=== PATIENT | male | born 1990 | race Caucasian/White ===

== ENCOUNTER 2018-05-30 10:35 | Emergency (ER) | payer OTHER ==
[~2018-05-30] VITALS: Ht 167.6 cm; Wt 50.8 kg
--- OUTSIDE RECORDS SUMMARY | 2018-05-30 10:48 | XMS REPORT ---
Author Author JOSE HENSLEY Organization [employer] Address Unknown Phone Unavailable Care Team Providers Care Tax Technician Name Role Phone JOSE HENSLEY CP Unavailable Allergies, Adverse Reactions, Alerts Substance Reaction Event Type N.K.D.A. Info Not Available Non Drug Allergy Problems Problem Type Condition Code Onset Dates Condition Status Assessment Other viral warts B07.8 Active Medications No Known Medications Procedures Procedure Coding System Code Date Office Visit, New Pt., Level 3 CPT-4 51928 Jan 30, 2016 Vital Signs Date/Time: Jan 30, 2016 Cardiac Monitoring Heart Rate 77 bpm Weight 117 lbs Height 68 in BMI 17.79 Index Blood Pressure Diastolic 64 mmHg Blood Pressure Systolic 118 mmHg Results No Known Results Summary Purpose [employer] Submission
--- OUTSIDE RECORDS SUMMARY | 2018-05-30 10:48 | XMS REPORT ---
Author Author JOSE HENSLEY Organization [employer] Address Unknown Phone Unavailable Care Team Providers Care Pumper Gager Apprentice Name Role Phone JOSE HENSLEY CP Unavailable Allergies, Adverse Reactions, Alerts Substance Reaction Event Type N.K.D.A. Info Not Available Non Drug Allergy Problems Problem Type Condition Code Onset Dates Condition Status Assessment MC (molluscum contagiosum) B08.1 Active Medications No Known Medications Procedures Procedure Coding System Code Date Office Visit, Est Pt., Level 3 CPT-4 07164 Feb 13, 2016 Vital Signs Date/Time: Feb 13, 2016 Cardiac Monitoring Heart Rate 68 bpm Weight 117.4 lbs Height 68 in BMI 17.85 Index Blood Pressure Diastolic 62 mmHg Blood Pressure Systolic 104 mmHg Results No Known Results Summary Purpose [employer] Submission
[2018-05-30] MEDS ORDERED: NS IV 1000 ML 1,000 ML IV ONE (11:03)
[2018-05-30 11:10] LABS: BASOPHILS # (AUTO) 0.1 10^3/uL (0.0-0.1); BASOPHILS % (AUTO) 1 % (0-10); EOSINOPHILS # (AUTO) 0.2 10^3/uL (0.0-0.3); EOSINOPHILS % (AUTO) 1 % (0-10); HEMATOCRIT 46 % (40-54); HEMOGLOBIN 16.5 G/DL (13.3-17.7); LYMPHOCYTES # (AUTO) 2.4 X 10^3 (1.0-4.0); LYMPHOCYTES % (AUTO) 18 % (12-44); MEAN CORPUSCULAR HEMOGLOBIN 33 PG (25-34); MEAN CORPUSCULAR HGB CONC 36 G/DL (32-36); MEAN CORPUSCULAR VOLUME 93 FL (80-99); MEAN PLATELET VOLUME 11.1 FL (7.4-10.4); MONOCYTES # (AUTO) 0.8 X 10^3 (0.0-1.0); MONOCYTES % (AUTO) 6 % (0-12); NEUTROPHILS # (AUTO) 9.6 X 10^3 (1.8-7.8); NEUTROPHILS % (AUTO) 74 % (42-75); PLATELET COUNT 170 10^3/uL (130-400); RED BLOOD COUNT 4.98 10^6/uL (4.35-5.85); RED CELL DISTRIBUTION WIDTH 12.4 % (10.0-14.5); WHITE BLOOD COUNT 13.1 10^3/uL (4.3-11.0)
--- NOTE | 2018-05-30 11:12 | Diagnostic Imaging Report ---
INDICATION: Pneumothorax.. TECHNIQUE: Single view chest 10:49 AM. CORRELATION STUDY: None FINDINGS: A moderate right-sided pneumothorax is present, approximately 25%. Mediastinal structures are slightly to the left of midline and component of tension is not excluded. There is some consolidation with likely atelectasis about the right mid and lower lung field. Left lung clear. IMPRESSION: 1. Right-sided pneumothorax of approximately 25%. Component of early tension suspect. Critical findings Findings have been telephoned to the emergency department, 11:02 AM. Dictated by: Dictated on workstation # [id number]
[2018-05-30] MEDS ORDERED: MIDAZOLAM 2 MG/2 ML (VERSED) VIAL ONE (11:20)
[2018-05-30] MEDS ORDERED: LIDOCAINE 1% INJ 20 ML 20 ML VIAL ONE (11:23)
[2018-05-30] MEDS ORDERED: MIDAZOLAM 2 MG/2 ML (VERSED) VIAL IM ONE ×2 (11:30)
[2018-05-30 11:34] LABS: ALANINE AMINOTRANSFERASE 18 U/L (0-55); ALBUMIN 5.1 GM/DL (3.2-4.5); ALKALINE PHOSPHATASE 52 U/L (40-136); BUN/CREATININE RATIO 19; CALCIUM 10.1 MG/DL (8.5-10.1); CARBON DIOXIDE 24 MMOL/L (21-32); CHLORIDE 106 MMOL/L (98-107); GFR ESTIMATED > 60; GLUCOSE 111 MG/DL (70-105); POTASSIUM 3.7 MMOL/L (3.6-5.0); SODIUM 142 MMOL/L (135-145); TOTAL PROTEIN 7.3 GM/DL (6.4-8.2)
--- NOTE | 2018-05-30 11:36 | ED Respiratory ---
General Chief Complaint: Respiratory Problems Stated Complaint: LUNG PAIN;AIR AROUND LUNG Nursing Triage Note: ARRIVED VIA AMB TO ROOM 03. SENT OVER FROM [facility] DUE TO A PNUMO SHOWING ON HIS X-RAY STATES AT 1500 YESTERDAY HE FELT A PAIN RIGHT UNDER HIS CHEST AND IT HURT TO COUGH AND BREATHE. Source: patient Exam Limitations: no limitations (WILLIAM WILSON MD) History of Present Illness Date Seen by Provider: May 30, 2018 Time Seen by Provider: 10:42 Initial Comments Here with report of physical to the breathing and pain on the right side of the chest. Was seen at [facility] today and found to have pneumothorax on the right. Patient states that yesterday afternoon he was walking and when he got home and felt like he needed to take a deep breath. He did that and felt a gravel-type pain to his right chest and felt like it was sticking on the right side. Had difficulty with deep breath for a little while and then settled down. Pain is worse when laying on the right side and better when lying on the left side. He's laid on the left side overnight and that did help. Went to the clinic this morning due to persistence of pain. Sent here for further evaluation. They and I both recommended transfer by ambulance on high flow O2 but he opted for POV transport. He did smoke on the way here. Denies fevers, vomiting or other concerns. Never had anything like this before. Timing/Duration: yesterday, getting worse Severity: moderate Prior Episodes/Possible Cause: no prior episodes Associated Symptoms: cough; No fever/chills, No nasal congestion; shortness of breath; No sore throat, No wheezing (WILLIAM WILSON MD) Allergies and Home Medications Allergies Coded Allergies: latex (Verified Allergy, Severe, rash, 05/30/18) Home Medications Oxycodone HCl/Acetaminophen 1 Each Tablet, 1-2 EACH PO Q6H PRN for PAIN-MODERATE Prescribed by: ONEAL NJ on 05/30/18 1235 Patient Home Medication List Home Medication List Reviewed: Yes (WILLIAM WILSON MD) Review of Systems Review of Systems Constitutional: see HPI; No chills, No fever EENTM: no symptoms reported Respiratory: see HPI Cardiovascular: see HPI, chest pain (right sided sharp and worse with deep breath) Gastrointestinal: No abdominal pain, No nausea, No vomiting Genitourinary: no symptoms reported Musculoskeletal: no symptoms reported (WILLIAM WILSON MD) All Other Systems Reviewed Negative Unless Noted: Yes (WILLIAM WILSON MD) Past Wrvfphi-Wwbqsh-Ljqocv Hx Past Med/Social Hx: Reviewed Nursing Past Med/Soc Hx (WILLIAM WILSON MD) Patient Social History Alcohol Use: Denies Use Recreational Drug Use: No Smoking Status: Current Everyday Smoker Recent Foreign Travel: No Contact w/Someone Who Travel: No Recent Infectious Disease Expo: No Recent Hopitalizations: No (WILLIAM WILSON MD) Seasonal Allergies Seasonal Allergies: No (WILLIAM WILSON MD) Past Medical History Surgeries: No Respiratory: No Cardiac: No Neurological: No Genitourinary: No Gastrointestinal: No Musculoskeletal: No Endocrine: No HEENT: No Cancer: No Psychosocial: No Integumentary: No (WILLIAM WILSON MD) Family Medical History Reviewed Nursing Family Hx (WILLIAM WILSON MD) No Pertinent Family Hx (WILLIAM WILSON MD) Physical Exam Vital Signs - First Documented 05/30/18 10:45 Temp 98.0 Pulse 112 Resp 20 B/P (MAP) 138/111 (120) Pulse Ox 100 O2 Delivery Room Air (ONEAL SALAZAR MD) Capillary Refill : Less Than 3 Seconds (WILLIAM WILSON MD) Height: 5'6.00" Weight: 112lbs. oz. 50.005966iu; BMI Method:Stated General Appearance: WD/WN, no apparent distress HEENT: PERRL/EOMI, pharynx normal Neck: full range of motion, supple Respiratory: decreased breath sounds (right sided); No wheezing Cardiovascular: regular rate, rhythm, no murmur Gastrointestinal: non tender, soft Extremities: non-tender, normal inspection Neurologic/Psychiatric: alert, normal mood/affect Skin: normal color, warm/dry (WILLIAM WILSON MD) Progress/Results/Core Measures Suspected Sepsis Recent Fever Within 48 Hours: No Infection Criteria Present: None New/Unexplained Altered Menta: No Sepsis Screen: No Definite Risk SIRS Temperature:98.0 Pulse: 112 Respiratory Rate: 20 Laboratory Tests 05/30/18 11:03: White Blood Count 13.1H Blood Pressure 138 /111 Mean: 120 Laboratory Tests 05/30/18 11:03: Creatinine 0.90, Platelet Count 170, Total Bilirubin 1.0 (WILLIAM WILSON MD) Results/Orders Lab Results Laboratory Tests Test 05/30/18 11:03 Range/Units White Blood Count 13.1 H 4.3-11.0 10^3/uL Red Blood Count 4.98 4.35-5.85 10^6/uL Hemoglobin 16.5 13.3-17.7 G/DL Hematocrit 46 40-54 % Mean Corpuscular Volume 93 80-99 FL Mean Corpuscular Hemoglobin 33 25-34 PG Mean Corpuscular Hemoglobin Concent 36 32-36 G/DL Red Cell Distribution Width 12.4 10.0-14.5 % Platelet Count 170 130-400 10^3/uL Mean Platelet Volume 11.1 H 7.4-10.4 FL Neutrophils (%) (Auto) 74 42-75 % Lymphocytes (%) (Auto) 18 12-44 % Monocytes (%) (Auto) 6 0-12 % Eosinophils (%) (Auto) 1 0-10 % Basophils (%) (Auto) 1 0-10 % Neutrophils # (Auto) 9.6 H 1.8-7.8 X 10^3 Lymphocytes # (Auto) 2.4 1.0-4.0 X 10^3 Monocytes # (Auto) 0.8 0.0-1.0 X 10^3 Eosinophils # (Auto) 0.2 0.0-0.3 10^3/uL Basophils # (Auto) 0.1 0.0-0.1 10^3/uL Sodium Level 142 135-145 MMOL/L Potassium Level 3.7 3.6-5.0 MMOL/L Chloride Level 106 98-107 MMOL/L Carbon Dioxide Level 24 21-32 MMOL/L Anion Gap 12 5-14 MMOL/L Blood Urea Nitrogen 17 7-18 MG/DL Creatinine 0.90 0.60-1.30 MG/DL Estimat Glomerular Filtration Rate > 60 BUN/Creatinine Ratio 19 Glucose Level 111 H 70-105 MG/DL Calcium Level 10.1 8.5-10.1 MG/DL Corrected Calcium 8.5-10.1 MG/DL Total Bilirubin 1.0 0.1-1.0 MG/DL Aspartate Amino Transf (AST/SGOT) 20 5-34 U/L Alanine Aminotransferase (ALT/SGPT) 18 0-55 U/L Alkaline Phosphatase 52 40-136 U/L Total Protein 7.3 6.4-8.2 GM/DL Albumin 5.1 H 3.2-4.5 GM/DL (ONEAL SALAZAR MD) My Orders Orders - ONEAL SALAZAR MD Fentanyl Injection (Sublimaze Injection (05/30/18 12:15) Ketorolac Injection (Toradol Injection) (05/30/18 12:15) Morphine Injection (Morphine Injection (05/30/18 12:45) Orphenadrine Injection (Norflex Injectio (05/30/18 13:00) (ONEAL SALAZAR MD) Medications Given in ED Current Medications Medications Dose Ordered Sig/Michael Route Start Time Stop Time Status Last Admin Dose Admin Fentanyl Citrate 50 mcg ONCE ONCE IVP 05/30/18 12:15 05/30/18 12:16 DC 05/30/18 12:22 50 MCG Ketorolac Tromethamine 15 mg ONCE ONCE IVP 05/30/18 12:15 05/30/18 12:16 DC 05/30/18 12:23 15 MG Lidocaine HCl 20 ml STK-MED ONCE .ROUTE 05/30/18 11:23 05/30/18 11:26 DC 05/30/18 11:38 20 ML Midazolam HCl 2 mg ONCE ONCE IM 05/30/18 11:30 05/30/18 11:31 DC 05/30/18 11:35 2 MG Morphine Sulfate 5 mg ONCE ONCE IVP 05/30/18 12:45 05/30/18 12:46 DC 05/30/18 12:41 5 MG Sodium Chloride 1,000 ml @ 0 mls/hr Q0M ONCE IV 05/30/18 11:03 05/30/18 11:06 DC 05/30/18 11:17 1,000 MLS/HR (ONEAL SALAZAR MD) Vital Signs/I&O 05/30/18 05/30/18 05/30/18 10:45 10:55 13:06 Temp 98.0 Pulse 112 73 Resp 20 16 B/P (MAP) 138/111 (120) 122/82 (95) Pulse Ox 100 10 100 O2 Delivery Room Air Non Rebreather Room Air (ONEAL SALAZAR MD) Vital Signs/I&O Capillary Refill : Less Than 3 Seconds (WILLIAM WILSON MD) Blood Pressure Mean: 120 Progress Note : Progress Note Seen and evaluated. X-ray done. This does show right-sided pneumothorax. IV and labs ordered. Normal saline 1 L bolus ordered. Patient is on high flow oxygen since arrival and will continue this. I did contact Dr. Sky 1050 and he will come to the emergency department. 1115: He is evaluating the patient. Obvious pneumothorax noted on chest x-ray. I discussed this with the radiologist. 1130: Dr. Sky will place thorovent to relieve pneumothorax. (WILLIAM WILSON MD) Progress Note #1: Time: 12:18 Progress Note Care of this patient was assumed from Dr. Wilson at 12:15. Dr. Sky placed a Thora-Vent successful. Follow-up x-ray demonstrated near resolution of the pneumothorax. Patient is receiving fentanyl and Toradol for pain. Discharge instructions discussed with Dr. Syk. Progress Note #2: Time: 12:59 Progress Note Patient additionally received morphine for treatment of pain and muscle spasms in his back. (ONEAL SALAZAR MD) Diagnostic Imaging Diagonstic Imaging: Xray Plain Films/CT/US/NM/MRI: chest Comments [facility] [place] NAME: YUNG LUIS Vicky [facility] REC#: [id number] PT STATUS: REG ER : 1990 PHYSICIAN: WILLIAM WILSON MD ADMIT DATE: 05/30/18/ER Draft Date of Exam:05/30/18 CHEST 1 VIEW, AP/PA ONLY INDICATION: Pneumothorax.. TECHNIQUE: Single view chest 10:49 AM. CORRELATION STUDY: None FINDINGS: A moderate right-sided pneumothorax is present, approximately 25%. Mediastinal structures are slightly to the left of midline and component of tension is not excluded. There is some consolidation with likely atelectasis about the right mid and lower lung field. Left lung clear. IMPRESSION: 1. Right-sided pneumothorax of approximately 25%. Component of early tension suspect. Critical findings Findings have been telephoned to the emergency department, 11:02 AM. Dictated on workstation # [id number] Dict: 05/30/18 1102 Trans: 05/30/18 1112 [facility] [id number] Interpreted by: COTY DANIELLE DO Electronically signed by: (WILLIAM WILSON MD) Diagonstic Imaging: Xray Plain Films/CT/US/NM/MRI: chest Comments Chest x-ray viewed by me and report reviewed. See report below: NAME: YUNG LUIS [facility] REC#: [id number] PT STATUS: REG ER : 1990 PHYSICIAN: WILLIAM WILSON MD ADMIT DATE: 05/30/18/ER Draft Date of Exam:05/30/18 CHEST 1 VIEW, AP/PA ONLY Portable erect AP chest at 1209h. INDICATION: Pneumothorax The exam performed earlier today at 1049h noted a 25% pneumothorax on the right. In the interval since the prior study a small caliber chest tube has been inserted on the right. The tube overlies the right apex and seems to be in good position. The pneumothorax noted on the prior exam has nearly completely resolved. There is only a small amount of free air present. The distance from the bony thorax to the edge of the lung is 7 MM. The overall appearance of the chest is otherwise stable. IMPRESSION: The appearance of the chest has improved since the prior exam as the right-sided pneumothorax noted previously has nearly completely resolved following the insertion of the small caliber right sided chest tube. The overall appearance of the chest is otherwise stable. These results were discussed with Dr. Sky. Dictated on workstation # [id number] Dict: 05/30/18 1221 Trans: 05/30/18 1226 [facility] [id number] Interpreted by: AIDEN VALENCIA MD (ONEAL SALAZAR MD) Departure Impression Primary Impression: Spontaneous pneumothorax Disposition: 01 HOME, SELF-CARE Condition: Improved Departure-Patient Inst. Decision time for Depature: 12:19 (ONEAL SALAZAR MD) Referrals: [facility] (PCP) Primary Care Physician ANJALI SKY DO Patient Instructions: Pneumothorax (Collapsed Lung) Add. Discharge Instructions: You may take Ibuprofen up to 600 mg every 6 hours as needed for pain. Add Percocet as prescribed for pain not controlled by ibuprofen. Sponge bath until your follow-up with Dr. Sky on . Present to Dr. Sky's office at 1:30 p.m. on June 01. Please call his office ahead of time to provide demographic information. Bring your ID and any insurance information you have with you to the appointment. Have that your x-ray performed at [facility] on morning before your appointment with Dr. Sky. Bring your order form with you. Call Dr. Sky or return to care if you have worsening symptoms or other problems. All discharge instructions reviewed with patient and/or family. Voiced understanding. Scripts Oxycodone HCl/Acetaminophen (Percocet 5-325 mg Tablet) 1 Each Tablet 1-2 EACH PO Q6H PRN for PAIN-MODERATE MDD 6, #20 TAB Prov: ONEAL SALAZAR MD 05/30/18 Work/School Note: Work Release Form Date Seen in the Emergency Department: May 30, 2018 Restrictions: Need Release from Doctor WILLIAM WILSON MD May 30, 2018 11:36 ONEAL SALAZAR MD May 30, 2018 12:21
--- NOTE | 2018-05-30 11:48 | Consultation ---
History of Present Illness History of Present Illness Patient Consulted On(lakeisha/time) 05/30/18 11:47 Time Seen by Provider: 11:20 History of Present Illness Surgery asked to consult regarding Pneumothorax. HPI per ED: Here with report of physical to the breathing and pain on the right side of the chest. Was seen at [facility] today and found to have pneumothorax on the right. Patient states that yesterday afternoon he was walking and when he got home and felt like he needed to take a deep breath. He did that and felt a gravel-type pain to his right chest and felt like it was sticking on the right side. Had difficulty with deep breath for a little while and then settled down. Pain is worse when laying on the right side and better when lying on the left side. He's laid on the left side overnight and that did help. Went to the clinic this morning due to persistence of pain. Sent here for further evaluation. They and I both recommended transfer by ambulance on high flow O2 but he opted for POV transport. He did smoke on the way here. Denies fevers, vomiting or other concerns. Never had anything like this before. Timing/Duration: yesterday, getting worse Severity: moderate Prior Episodes/Possible Cause: no prior episodes Associated Symptoms: cough; No fever/chills, No nasal congestion; shortness of breath; No sore throat, No wheezing When I saw the patient he had a oxygen mask on and was complaining of some right -sided chest pain minimal shortness of breath. He was also complaining of being cold, but otherwise appeared to be comfortable. Patient denied any trauma to the right chest. He states this is never occurred before. Allergies and Home Medications Allergies Coded Allergies: latex (Verified Allergy, Severe, rash, 05/30/18) Home Medications Oxycodone HCl/Acetaminophen 1 Each Tablet, 1-2 EACH PO Q6H PRN for PAIN-MODERATE Prescribed by: ONEAL NJ on 05/30/18 9705 Patient Home Medication List Home Medication List Reviewed: Yes Past Vbmabbb-Qgvpaj-Kkrzcd Hx Patient Social History Alcohol Use: Denies Use Recreational Drug Use: No Smoking Status: Current Everyday Smoker Recent Foreign Travel: No Contact w/Someone Who Travel: No Recent Infectious Disease Expo: No Recent Hopitalizations: No Seasonal Allergies Seasonal Allergies: No Surgeries History of Surgeries: No Respiratory History of Respiratory Disorde: No Cardiovascular History of Cardiac Disorders: No Neurological History of Neurological Disord: No Genitourinary History of Genitourinary Disor: No Gastrointestinal History of Gastrointestinal Di: No Musculoskeletal History of Musculoskeletal Dis: No Endocrine History of Endocrine Disorders: No HEENT History of HEENT Disorders: No Cancer History of Cancer: No Psychosocial History of Psychiatric Problem: No Integumentary History of Skin or Integumenta: No Family Medical History Significant Family History: Diabetes (denies in his parents) Review of Systems-General Constitutional: No chills, No diaphoresis, No dizziness, No weakness EENTM: No blurred vision, No double vision, No hoarseness, No mouth pain, No epistaxis, No throat swelling Respiratory: dyspnea on exertion; No hemoptysis, No phlegm; short of breath Cardiovascular: No chest pain, No edema, No palpitations Gastrointestinal: No abdominal pain, No diarrhea, No dysphagia, No nausea, No vomiting Genitourinary: No dysuria, No frequency, No hematuria Musculoskeletal: No joint pain, No joint swelling, No muscle pain, No muscle stiffness Skin: No change in color, No change in hair/nails, No lesions, No lumps Psychiatric/Neurological: Denies Anxiety, Denies Depressed, Denies Seizure, Denies Tremors Other pt denies any abnormal bruising or bleeding Physical Exam-General Problems Physical Exam Vital Signs Vital Signs - First Documented 05/30/18 10:45 Temp 98.0 Pulse 112 Resp 20 B/P (MAP) 138/111 (120) Pulse Ox 100 O2 Delivery Room Air Capillary Refill : Less Than 3 Seconds General Appearance: moderate distress, thin Eyes: Bilateral Eye PERRL, Bilateral Eye EOMI HEENT: pharynx normal; No scleral icterus (R), No scleral icterus (L), No pale conjunctivae (R), No pale conjunctivae (L) Neck: non-tender, normal inspection; No thyromegaly Respiratory: normal breath sounds (only on left), respiratory distress, decreased breath sounds (right), accessory muscle use; No rhonchi, No wheezing Cardiovascular: regular rate, rhythm, no murmur Gastrointestinal: normal bowel sounds, non tender, soft, no organomegaly, no pulsatile mass, hernia (small umbilical) Back: no CVA tenderness, no vertebral tenderness Extremities: normal range of motion, non-tender, normal inspection, no pedal edema, no calf tenderness, normal capillary refill Neurologic/Psychiatric: word processor operator II-XII nml as tested, no motor/sensory deficits, alert, oriented x 3, other (anxious) Skin: normal color, warm/dry Lymphatic: no adenopathy (neck, axilla or groin) Data Review Labs Laboratory Tests 05/30/18 11:03: White Blood Count 13.1H, Red Blood Count 4.98, Hemoglobin 16.5, Hematocrit 46, Mean Corpuscular Volume 93, Mean Corpuscular Hemoglobin 33, Mean Corpuscular Hemoglobin Concent 36, Red Cell Distribution Width 12.4, Platelet Count 170, Mean Platelet Volume 11.1H, Neutrophils (%) (Auto) 74, Lymphocytes (%) (Auto) 18 , Monocytes (%) (Auto) 6, Eosinophils (%) (Auto) 1, Basophils (%) (Auto) 1, Neutrophils # (Auto) 9.6H, Lymphocytes # (Auto) 2.4, Monocytes # (Auto) 0.8, Eosinophils # (Auto) 0.2, Basophils # (Auto) 0.1, Sodium Level 142, Potassium Level 3.7, Chloride Level 106, Carbon Dioxide Level 24, Anion Gap 12, Blood Urea Nitrogen 17, Creatinine 0.90, Estimat Glomerular Filtration Rate > 60, BUN/ Creatinine Ratio 19, Glucose Level 111H, Calcium Level 10.1, Corrected Calcium , Total Bilirubin 1.0, Aspartate Amino Transf (AST/SGOT) 20, Alanine Aminotransferase (ALT/SGPT) 18, Alkaline Phosphatase 52, Total Protein 7.3, Albumin 5.1H Radiology Date of Exam: 05/30/18 CHEST 1 VIEW, AP/PA ONLY INDICATION: Pneumothorax.. TECHNIQUE: Single view chest 10:49 AM. CORRELATION STUDY: None FINDINGS: A moderate right-sided pneumothorax is present, approximately 25%. Mediastinal structures are slightly to the left of midline and component of tension is not excluded. There is some consolidation with likely atelectasis about the right mid and lower lung field. Left lung clear. IMPRESSION: 1. Right-sided pneumothorax of approximately 25%. Component of early tension suspect. Critical findings Findings have been telephoned to the emergency department, 11:02 AM. Dictated by: Dictated on workstation # [id number] Dict: 05/30/18 1102 Trans: 05/30/18 1140 Interpreted by: COTY DANIELLE DO Electronically signed by: COTY DANIELLE DO 05/30/18 1140 Assessment/Plan Assessment/Plan Assessment/Plan Spontaneous Pneumothorax - radiologist thinks there may be early tension pneumothorax Plan to place thora-vent. Will suction out PTX and recheck CXR. Discussed procedure with pt, risks and complications not limited to pain, bleeding, infection, scar and damage to lung. I did tell him he would probably have some pain while chest tube was in; but hopefully it could come out in 2-3 days. He will follow up in my office and get repeat CXR prior to seeing me. ANJALI SKY DO May 30, 2018 11:48
[2018-05-30] MEDS ORDERED: fentaNYL INJECTION 100 MCG/2 ML AMP IVP ONE (12:15)
[2018-05-30] MEDS ORDERED: KETOROLAC 30 MG/ML VIAL IVP ONE (12:15)
--- NOTE | 2018-05-30 12:25 | Diagnostic Imaging Report ---
Portable erect AP chest at 1209h. INDICATION: Pneumothorax The exam performed earlier today at 1049h noted a 25% pneumothorax on the right. In the interval since the prior study a small caliber chest tube has been inserted on the right. The tube overlies the right apex and seems to be in good position. The pneumothorax noted on the prior exam has nearly completely resolved. There is only a small amount of free air present. The distance from the bony thorax to the edge of the lung is 7 MM. The overall appearance of the chest is otherwise stable. IMPRESSION: The appearance of the chest has improved since the prior exam as the right-sided pneumothorax noted previously has nearly completely resolved following the insertion of the small caliber right sided chest tube. The overall appearance of the chest is otherwise stable. These results were discussed with Dr. Parker. Dictated by: Dictated on workstation # [id number]
[2018-05-30] MEDS ORDERED: OXYC1TAB87 PO (12:35)
[2018-05-30] MEDS ORDERED: morphine INJ 10 MG/ML 1ML (SYR OR VIAL) IVP ONE (12:45)
[2018-05-30] MEDS ORDERED: ORPHENADRINE 60 MG/2 ML (NORFLEX) AMP IV ONE (13:00)
[2018-05-30 13:06] VITALS: BP 122/82
--- NOTE | 2018-05-30 15:57 | Progress Note-Post Operative ---
Post-Operative Progess Note Surgeon (s)/Dicer Machine Operator (s) Surgeon ANJALI SKY DO Dicer Machine Operator: none Pre-Operative Diagnosis Right pneumothorax Post-Operative Diagnosis same Procedure & Operative Findings Date of Procedure 05/30/18 Procedure Performed/Findings Thora-Vent insertion Anesthesia Type Versed and local lidocaine Estimated Blood Loss Estimated blood loss (mL): scant Specimens/Packing Specimens Removed none ANJALI SKY DO May 30, 2018 15:57
--- NOTE | 2018-05-30 21:36 | OPERATIVE REPORT ---
DATE OF SERVICE: PREOPERATIVE DIAGNOSES: Right pneumothorax. POSTOPERATIVE DIAGNOSES: Right pneumothorax. PROCEDURE: Insertion of Thoravent chest tube. SURGEON: Eliel Parker DO. DICTAPHONE TRANSCRIBER: None. ANESTHESIA: Local lidocaine. He did get a little bit of Versed. SPECIMENS: None. BLOOD LOSS: Scant. FLUIDS: None. POSTOPERATIVE CONDITION: Stable. INDICATION FOR PROCEDURE: The patient is a 28-year-old male who presents to the emergency room with a spontaneous pneumothorax. Radiology thought it might be the beginning of a tension pneumothorax and needed a chest tube placed. FINDINGS: The patient had a chest tube placed in the right anterior chest wall just lateral to the midclavicular line. Postoperative chest x-ray showed resolution of the pneumothorax. PROCEDURE NOTE: After informed consent was obtained, the patient was in the ER bed, sterilely prepped and draped in normal fashion, had been given a dose of Versed by the nurse and then using local lidocaine infiltrated above the probable 3rd or 4th rib just lateral to the midclavicular line. Once had infiltrated with local then made a stab incision with #11 blade and then advanced the Thoravent chest tube with a trocar slowly to go just above the rib to stay away from the vessels and nerves. [place] to give and then advanced the rest of the chest tube into the chest, it went in easily, did not advance the trocar. Could see that there was an air leak, suctioned out as much air as possible until it was no longer able to suction out any air. Thoravent appeared to be working. The patient was having some back pain and chest pain, but otherwise doing okay. Chest x-ray after the placement showed good placement of the tube and resolution of his pneumothorax. Job ID: [id number] DocumentID: [id number] Dictated Date: 05/30/2018 18:30:22 Hop Strainer Date: 05/30/2018 21:36:03 Dictated By: ELIEL PARKER DO
== END 2018-05-30 13:06 | disposition home or self-care (01) ==
LOC: ER 10:36
DX: J93.11 Primary spontaneous pneumothorax (principal); R07.9 Chest pain, unspecified; F17.200 Nicotine dependence, unspecified, uncomplicated; Z91.040 Latex allergy status
CPT/HCPCS: 32551; 36415; 71045; 80053; 85025; 96374; 96375

== ENCOUNTER → 2018-06-01 | Outpatient (CLI) | payer OTHER ==
[~2018-06-01] MED LIST: OXYC1TAB87 PO
--- NOTE | 2018-06-01 12:00 | Diagnostic Imaging Report ---
INDICATION: Pneumothorax Portable chest 12:08 PM The small right thoracostomy tube remains in place. There is a tiny right apical pneumothorax measuring 5 mm. Lungs are clear. IMPRESSION: Tiny stable right apical pneumothorax. Dictated by: Dictated on workstation # [id number]
== END ==
LOC: RAD 11:33
PROVIDERS: ATTEND Family Medicine
DX: J93.83 Other pneumothorax (principal)
CPT/HCPCS: 71046

== ENCOUNTER → 2018-06-05 | Outpatient (CLI) | payer OTHER ==
--- NOTE | 2018-06-05 10:32 | Diagnostic Imaging Report ---
INDICATION: Pneumothorax. TECHNIQUE: PA and lateral views of the chest were obtained. COMPARISON: 06/01/2018. FINDINGS: The heart size and pulmonary vascularity are within normal limits. There is no significant pleural fluid or consolidation. The right apical pleural device remains in place. No significant residual pneumothorax is identified. There is no midline shift. IMPRESSION: No significant residual pneumothorax or other acute abnormality is identified. Dictated by: Dictated on workstation # [id number]
== END ==
LOC: RAD 10:01
PROVIDERS: ATTEND Surgery
DX: J93.9 Pneumothorax, unspecified (principal)
CPT/HCPCS: 71046

== ENCOUNTER → 2018-06-07 | Outpatient (CLI) | payer OTHER ==
--- NOTE | 2018-06-07 11:53 | Diagnostic Imaging Report ---
Indication: Pneumothorax followup. Comparison: 06/05/2018 Findings: Frontal and lateral radiographic views of the chest were obtained and demonstrate interval removal of right-sided small bore chest tube. There is no evidence of recurrent or residual pneumothorax on either side. Lungs are otherwise clear. There is no focal consolidation or effusion. Cardiac silhouette and pulmonary vasculature within normal limits. Bony structures show no gross acute abnormalities. Impression: 1. Interval removal of small bore right-sided chest tube. No evidence of recurrent or residual pneumothorax. Dictated by: Dictated on workstation # [id number]
== END ==
LOC: RAD 10:34
PROVIDERS: ATTEND Surgery
DX: J93.9 Pneumothorax, unspecified (principal)
CPT/HCPCS: 71046

== ENCOUNTER 2018-07-31 13:35 | Outpatient (RCR) | payer OTHER | END 2018-10-29 | disposition home or self-care (01) | LOC: CARD 13:35 | PROVIDERS: ATTEND Nurse Practitioner Family | DX: R00.2 Palpitations (principal) | CPT/HCPCS: 93225; 93226 ==

== ENCOUNTER → 2018-08-15 | Outpatient (CLI) | payer OTHER | LOC: CARD 09:39 | PROVIDERS: ATTEND Nurse Practitioner Family | DX: R00.2 Palpitations (principal); I49.3 Ventricular premature depolarization; R00.0 Tachycardia, unspecified; I49.1 Atrial premature depolarization | CPT/HCPCS: 93306; 93351 ==